=== PATIENT | male | born 1950 | race Caucasian/White ===

== ENCOUNTER → 2023-09-10 10:35 | Outpatient (REF) | payer OTHER, SELFPAY | LOC: HWRAD 10:35 | PROVIDERS: ATTENDING PHYSICIAN Physician Assistant Medical | DX: R63.4 Abnormal weight loss (principal) | CPT/HCPCS: 71260; 74177; Q9967 ==

== ENCOUNTER → 2023-09-26 14:38 | Outpatient (REF) | payer OTHER, SELFPAY | LOC: HWRAD 14:38 | PROVIDERS: ATTENDING PHYSICIAN Surgery Vascular Surgery; FAMILY PHYSICIAN Physician Assistant Medical | DX: I71.40 Abdominal aortic aneurysm, without rupture, unspecified (principal) | CPT/HCPCS: 74174; Q9967 ==

== ENCOUNTER → 2023-09-29 11:18 | Outpatient (REF) | payer OTHER, SELFPAY | LOC: DHCBC/DCA 11:18 | PROVIDERS: ATTENDING PHYSICIAN Nuclear Medicine Nuclear Cardiology; FAMILY PHYSICIAN Physician Assistant Medical | DX: I47.10 Supraventricular tachycardia, unspecified (principal) | CPT/HCPCS: 78452; 93017; A9500; J2785 ==

== ENCOUNTER 2023-10-09 06:24 | Inpatient (IN) | payer MEDICARE, SELFPAY ==
[2023-10-06 10:26] VITALS: BMI 21.6
[2023-10-06 11:13] LABS: % Basophils 0.6 % (0-2); % Eosinophils 2.7 % (0-6); % Immature Granulocytes 0.4 % (0-0.5); % Lymphocytes 22.1 % (20.5-51.1); % Monocytes 9.8 % (1.7-9.3); % Neutrophils 64.4 % (42.2-75.2); Absolute Eosinophils 0.2 10^3/uL (0-0.7); Absolute Lymphocytes 1.6 10^3/uL (1.2-3.4); Absolute Monocytes 0.7 10^3/uL (0.1-0.6); Absolute Neutrophils 4.6 10^3/uL (1.4-6.5); Hematocrit 36.7 % (39.0-52.0); Mean Corp Hgb Conc. 32.7 g/dL (33.0-37.0); Mean Corpuscular Hgb 30.8 pg (27.0-31.0); Mean Corpuscular Volume 94.3 fL (80.0-94.0); Mean Platelet Volume 10.8 fL (7.4-10.4); Nucleated Red Blood Cells % 0 % (-); Platelet Count 190 10^3/uL (130-400); Red Blood Cell Count 3.89 10^6/uL (4.70-6.10); Red Cell Dist. Width 15.2 % (11.5-14.5); White Blood Cell Count 7.1 10^3/uL (4.8-10.8)
[2023-10-06 11:16] LABS: INR 1.28; PT 15.8 Sec (11.4-14.6)
[2023-10-06 11:17] LABS: APTT 31.2 Sec (23.4-35.0)
[2023-10-06 13:39] LABS: Blood Urea Nitrogen 9 mg/dl (9-20); Calcium 8.6 mg/dl (8.4-10.2); Carbon Dioxide 26 mmol/L (22-30); Chloride 107 mmol/L (98-107); Estimated Creatinine Clearance 72 ml/min; Glucose 99 mg/dl (70-99); Potassium 3.5 mmol/L (3.5-5.1); Sodium 139 mmol/L (135-145); eGFR > 60.00
[2023-10-09] VITALS (20 sets, daily range): BP systolic 125–163; BP diastolic 71–104; BMI 19.9
[2023-10-09] MEDS: BACTROBAN NASAL 1 GRAM NASAL (06:54)
[2023-10-09] MEDS: PERIDEX 0.12% ORAL RINSE 15 ML PO (06:55)
--- NOTE | 2023-10-09 07:12 | W.SUR.PREOP ---
Pre-Operative Surgical Note
-
I have examined this patient prior to the performance of the scheduled procedure.
The patient's condition is unchanged from the time of the current History and
Physical and the patient is able to undergo the scheduled procedure.
--- NOTE | 2023-10-09 09:56 | W.SUR.POST ---
Surgical Immediate Post Op
Note
Pre Op Diagnosis: AAA
Post Op Diagnosis: AAA
Procedure Performed: EVAR with left internal iliac artery coil embolization
Primary Surgeon: Renan
Secondary Surgeons: GILLIAN Phillips
Anesthesia: General
Estimated Blood Loss: 100cc
Fluids: see anesthesia flow sheet
Drains/Shunts: none
Specimens/Cultures: none
Doppler/Duplex/Angio (Y/N): Y
Complications: none
Operative Findings: no endoleak
[2023-10-09 10:31] LABS: Glucose - Point of Care 127 mg/dl (70-99)
--- NOTE | 2023-10-09 10:37 | OR.RPT ---
Operative Report
Operative Report
PROCEDURE DATE: 10/09/2023
Preoperative diagnosis:
1. 7.1 x 6.8 cm infrarenal abdominal aortic aneurysm.
2. 2.8 cm left common iliac artery aneurysm.
Postoperative diagnosis: Same
Procedure:
1. Endovascular repair of abdominal aortic aneurysm with bifurcated modular endoprosthesis ([place] conformable C3 excluder) with bilateral iliac limb extension (left iliac limb extended into external iliac artery intentionally).
2. Coil embolization of left internal iliac artery.
3. Percutaneous bilateral common femoral artery closure.
4. Supervision and interpretation.
Surgeon: Renan
Complications: None
Anesthesia: General
Indications for procedure:
Large infrarenal abdominal aortic aneurysm. Severely angulated proximal neck. Left common iliac artery aneurysm. Challenging anatomy. Discussed based on anatomy would recommend conformable C3 [place] excluder graft. Discussed coil embolization of
left internal iliac artery with extension into external iliac artery for management of left common iliac artery aneurysm. Risk/benefit/alternatives also discussed. Patient understood all wish to proceed.
Description of procedure:
Patient was identified brought to the operating room placed on the table in supine position. After the adequate administration of anesthesia and perioperative antibiotics he was prepped and draped in the standard surgical fashion. A standard
preoperative timeout was undertaken and everybody was in agreement the plan. Bilateral common femoral artery access was obtained under direct duplex ultrasound guidance and micropuncture kits. 6 [place] sheaths were placed over 0.035 inch wires.
Next, small 1 cm incisions were made around the sheath entry sites bilaterally. Blunt dissection was undertaken with hemostats to facilitate percutaneous suture delivery. Next, using the ProGlide suture system, percutaneous sutures were deployed
at the 10:00 and 2 o'clock position bilaterally in the standard fashion. Suture strands were tagged outside the skin. We exchanged for 11 [place] sheaths bilaterally. The patient was given 5000 units of intravenous heparin.
Next using a flap angled hydrophilic wire and a george's the catheter, I attempted to cannulate the left iliac system from the right-sided sheath. This was in order to try to coil embolize the left hypogastric artery. Due to the angulation at
the aortic bifurcation I had great difficulty passing any catheter. Therefore I then tried from the left-sided sheath (ipsilateral). Was finally able to gain wire access into the internal iliac artery branches. This was done with a floppy angled
hydrophilic wire. Next I exchanged for a glide catheter is at the only catheter I could get into the internal iliac artery from that angle. Through this I placed three 8 mm Cook Smiley coils. Was able to successfully coil embolized the internal
iliac artery having attempted to maintain my coils in the proximal internal iliac artery to maintain distal branches, but one of the coils migrated into the bifurcation point slightly. Regardless the coil embolization was successfully undertaken.
Next using a KMP catheter, I guided wires into the supraceliac aorta from bilateral access sites. On the left side I exchanged out for a pigtail catheter which was positioned in the juxtarenal aorta. The right side I exchanged for a CITTIOerquist
wire. I now performed power injection aortography. I was able to confirm the wire lay relative to the aortic aneurysm/tortuosity in the proximal neck. And thereby determined that I would bring the ipsilateral graft device up to the right sided
sheath access. Next I exchanged my right-sided 11 [place] sheath for a [place] dry seal 18 [place] sheath which was advanced into the aorta under fluoroscopy.
I then brought the main body device into place. It was oriented under fluoroscopy in the field before loading it over the wire and inserting it through the right-sided sheath. I had oriented such that the contralateral gate would be positioned
anatomic/slightly anteriorly. (This was based on the wire lay on fluoroscopy). The main body was a [place] conformable C3 Excluder endoprosthesis [id number] (32 mm proximal diameter, 14 mm ipsilateral limb diameter, 14 cm length). Once this was
advanced to the level of the juxtarenal aorta, power injection aortography was obtained via the left-sided pigtail catheter. This was done in the appropriate obliquity based on the CT scan imaging prior. The renal artery origins were carefully and
accurately identified. These were marked on the screen. Next, the right sided dry seal sheath was withdrawn to the level of the contralateral gate. I confirmed positioning of the contralateral gate and then began deployment of the stent graft
just at or above the height of the most inferior aspect of the right renal artery. I intentionally placed it slightly high to allow the left side of the graft to flop outward to seal immediately at the left side just inferior to the left renal
artery. This nicely deployed. I initially felt that the graft however was slightly high in the right renal artery. I obtained angiographic imaging which was slightly challenging as the pigtail was slightly crimped by the graft and therefore was
not filling well. However it did look like the graft was slightly high. Therefore, I first elected to cannulate the contralateral gate. I did this by exchanging my pigtail catheter out for a KMP catheter over a floppy hydrophilic wire. I then
was able to cannulate the contralateral gate successfully. I then exchanged for a pigtail catheter back through the gate into the main body of the graft and then above the graft. I confirmed that the pigtail catheter spun well through the main
body of the graft confirming that I was in the true lumen of the limb. Next I performed power injection aortography again and identified the renal arteries again. The graft was cramping right onto the right renal artery origin. While there was
filling of the right renal artery, I felt it was slightly high still. Therefore I then reconstrained using the C3 constraint mechanism. I then gently pulled it down minimally and in addition created some angulation using the conform ability
component. At this point I was satisfied and then unconstrained it again to allow the edges of the stent graft to seal up against the proximal neck as well as I could get it to seal. Now, I was very satisfied.
I then exchanged my pigtail out over a Lunderquist wire. I did not need to perform retrograde pelvic angiogram because I had already coil embolized the internal iliac artery and was going to just extend my iliac contralateral limb beyond there. I
exchanged for a 12 [place] dry seal sheath. I therefore then used a 14 cm length, 12 mm diameter contralateral limb ([id number])that was advanced, and the dry seal sheath was withdrawn. I then deployed the stent graft. It was still short of
the iliac bifurcation and therefore had to extend with a second piece which was also 12 mm diameter, 10 cm length ([id number]) which I was able to seal nicely in the external iliac artery.
Next, I then completed full deployment of the main body (releasing constraint) and completing ipsilateral limb deployment. I then walked off the delivery system. Retrograde pelvic angiogram was performed and appropriate obliquity and iliac
bifurcation marked on the screen on the right side. I then used a 23 mm diameter, 10 cm iliac limb ([id number]) to extend and seal in the ectatic right common iliac artery. This was deployed just short of my ana of the iliac bifurcation nicely.
Next a molding balloon was used to molded the proximal and distal seal zones as well as the overlap sites. Power injection completion aortography was now performed that demonstrated excellent positioning of the graft. No evidence of any endoleak
(even no evidence of type II was noted) was noted. Right internal iliac artery filled nicely. Both renal arteries filled nicely. Successful coil embolization of left internal iliac artery with no retrograde endoleak from that site. Therefore is
very satisfied with the completion angiogram.
Next I exchanged my pigtail catheter back for a Lunderquist wire. Next, I sequentially removed the sheath while cinching down the percutaneous sutures. This was initially done on the right side and then on the left. Once hemostasis was noted the
wire was then withdrawn, the knot was tightened with a knot pusher. Hemostasis was confirmed. The knot was then locked and the suture strands trimmed. This was done as noted on the right initially and then on the left. Hemostasis was fully
achieved bilateral groins with good femoral pulses bilaterally. The small skin incisions were then closed with 4-0 Monocryl subcuticular stitch and Dermabond was applied. Patient tolerated procedure well. He had palpable PT pulses bilaterally
upon completion.
[2023-10-09 10:52] LABS: Hematocrit 31.4 % (39.0-52.0); Hemoglobin 10.8 g/dL (13.0-18.0); Mean Corp Hgb Conc. 34.4 g/dL (33.0-37.0); Mean Corpuscular Hgb 31.9 pg (27.0-31.0); Mean Corpuscular Volume 92.6 fL (80.0-94.0); Red Blood Cell Count 3.39 10^6/uL (4.70-6.10); White Blood Cell Count 6.1 10^3/uL (4.8-10.8)
[2023-10-09 11:01] LABS: INR 1.35; PT 16.7 Sec (11.4-14.6)
[2023-10-09 11:02] LABS: APTT 32.2 Sec (23.4-35.0)
[2023-10-09 11:05] LABS: Blood Urea Nitrogen 6 mg/dl (9-20); Carbon Dioxide 24 mmol/L (22-30); Chloride 112 mmol/L (98-107); Estimated Creatinine Clearance 94 ml/min; Glucose 130 mg/dl (70-99); Potassium 3.6 mmol/L (3.5-5.1); Sodium 139 mmol/L (135-145); eGFR > 60.00
--- NOTE | 2023-10-09 11:10 | CON.INTV ---
Consultation
Consultation Request
Date/Time Consultation Requested: 10/09/2023-11:15 AM
Date/Time Consultation Performed: 10/09/2023-12 noon
Requesting Provider: Vascular surgery
Performing Provider: Dr. Strickland
Reason for Consultation: Postoperative critical care management
Medical History
-
Chief Complaint: AAA
History of Present Illness:
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
postoperative critical care management 10/09/2023.The patient is seen postoperatively in the surgical intensive care unit. He denies any shortness of breath, chest pain, chest congestion, productive cough, abdominal pain, leg swelling or weakness.
Past Medical History
Past Medical History: None (Hypertension. Hyperlipidemia. 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 Former cigarette smoker. Daily marijuana smoker. AAA.)
Social History
Tobacco: Former Smoker (35-dono-tqkd quit 12 months ago)
Living: With Family
Occupational Exposures: No known asbestos exposure
Environmental Exposures: No known tuberculosis exposure
Family History
Family History: Other (Hypertension and maternal grandmother with aneurysm)
Allergies / Home Medications
Allergies
Allergy/AdvReac Type Severity Reaction Status Date / Time
No Known Allergies Allergy Unverified 10/01/23 15:10
Home Medications
Medication Instructions Recorded Confirmed Last Taken Type
atorvastatin 80 mg tablet 80 mg PO QPM #30 tabs 11/12/21 10/09/23 10/08/23 19:00 Rx
amlodipine 5 mg tablet 5 mg PO DAILY 09/20/22 10/09/23 10/07/23 07:00 History
apixaban 5 mg tablet (Eliquis) 5 mg PO BID 09/20/22 10/09/23 10/07/23 19:00 History
brimonidine 0.2 % eye drops 1 drp ophthalmic (eye) BID 10/01/23 10/09/23 10/08/23 22:00 History
latanoprost 0.005 % eye drops 1 drp ophthalmic (eye) QPM 10/01/23 10/09/23 10/08/23 22:00 History
vitamin D3 25 mcg (1,000 unit)-vit 1 tab PO DAILY 10/01/23 10/09/23 10/08/23 11:00 History
K2 90 mcg disintegrating tablet
Review of Systems
-
Unable to Obtain full review of systems at this time due to: Other (Per HPI)
Vitals / Labs / Diagnostic Testing
Vital Signs
Temp Pulse Resp BP Pulse Ox
97 F 57 12 152/75 100
10/09/23 10:18 10/09/23 11:00 10/09/23 11:00 10/09/23 11:00 10/09/23 11:00
Lab Data
10/09/23 10:40
10/09/23 10:40
Laboratory Results
10/09/23
10:40
PT 16.7 H
INR 1.35
APTT 32.2
Microbiology
10/06/23 10:36 Nose MRSA Screen - Final
No Methicillin Resistant Staphylococcus aureus isolated.
Diagnostic Testing:
Physical Exam
-
Exam:
Well-nourished and well-developed in no apparent distress
HEENT-atraumatic, normocephalic
Neck-supple, no JVD, no bruit
Heart-regular rate and rhythm-no murmurs, rubs or gallops
Chest-clear to auscultation, no wheezes, crackles
Back-no tenderness
Abdomen-soft, nontender, nondistended, no hepatosplenomegaly
Extremities-no cyanosis, clubbing, edema and good peripheral pulses
Integument-intact, no rashes, lesions or ecchymosis
Neurology-alert and oriented, nonfocal motor and sensory exam
Assessment
-
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
postoperative critical care management 10/09/2023.
Assessment
Infrarenal AAA-7.1 cm and 2.8 cm left common iliac artery aneurysm
Status post EVAR with bifurcated modular endoprosthesis with bilateral iliac limb extensions, coil embolization of left internal iliac artery-Dr. Urrutia-10/09/2023
Khekqi-uzkxxdnneo-qubcbvadkz 10.8
Mild hyperglycemia
Conditions present prior to admission:
Hypertension.
Hyperlipidemia.
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
COPD-noted on CT chest
Former cigarette smoker
Daily marijuana smoker-and Gummies.
AAA.
Plan
Postoperative surgical intensive care unit monitoring
Supplemental oxygen as needed
Incentive spirometry
Aspiration precautions
Neuro and vascular checks per protocol
Vascular surgery following-correspondence and operative notes reviewed
Monitor hemoglobin
Transfuse as needed
Monitor blood sugar
Insulin supplementation as needed
DVT prophylaxis
Early nutrition
Early mobilization
Ongoing smoking and marijuana cessation counseling
Recommend outpatient pulmonary follow-up with PFTs, ongoing smoking cessation counseling and yearly low-dose lung cancer screening CT
Critical care statement: A total of 50 minutes of critical care time was provided for this patient today. This includes management of unstable vital signs, evaluation of the patient at bedside, reviewing the patient's pertinent medical records
including radiographs, microbiology, laboratory evaluations, and discussion with primary team, consultants, pharmacy, nutrition, physical therapy, case management, charge nurse, critical care nursing, and respiratory therapy.
Diagnostic data:
Chest x-ray 11/07/2021-NAD, osteopenia
CT chest abdomen and pelvis 09/10/2023-large fusiform aortic aneurysm measuring 6.4 cm, mild centrilobular emphysema
Brain MRI-small scattered acute and subacute nonhemorrhagic infarcts in the bilateral cerebral hemispheres greatest in the left frontoparietal region near the vertex
Echocardiogram/-EF 60-65%, aortic sclerosis without stenosis
Nuclear stress test 09/29/2023-EF 65%, fixed defect basilar and pleural septal area, moderate risk study
Data Reviewed
-
EKG: Report reviewed by me
Radiology: Report reviewed by me
CT Scan: Report reviewed by me
Medical Tests (Nuc Med, Echo etc): Report reviewed by me
Labs: Labs reviewed by me
Old Records: Reviewed
Critical Care Time (in minutes): 50
[2023-10-09 11:13] LABS: Platelet Count 143 10^3/uL (130-400)
[2023-10-09 11:14] LABS: Mean Platelet Volume 10.6 fL (7.4-10.4)
[2023-10-09] MEDS: NSS 1000 IV ×2 (11:19→23:32)
--- NOTE | 2023-10-09 11:46 | PTCARENOTE ---
Addendum entered by Herminia Weber RN 10/09/23 14:00:
Secured all connections of Left radial Erlinda which was also zeroed to atmospheric pressure and leveled at phlebostatic axis.
Original Note:
Received patient to room 3371 from PACU. Patient AAOx4, denies complaints of pain but is uncomfortable with cosby, feels as though he has to void. Cosby is draining light yellow urine. Patient has simple mask on, due to come off at 1230.
Saturation 100%. He is in a sinus rhythm in 60s. bilateral PT and DP pulses by doppler. Bilateral groin glue incisions approximated with no hematoma noted. Patient to lay flat for 2 hours, may go to 30degrees at 12:30. Will review orders and
complete admission assessment.
--- NOTE | 2023-10-09 12:30 | PTCARENOTE ---
sat patient up to 30%. Tolerating room air, 96%.
[2023-10-09] MEDS: HEPARIN 5000 UNITS SC ×2 (16:26→23:45)
[2023-10-09] MEDS: LIPITOR 80 MG PO (17:33)
[2023-10-09] MEDS: XALATAN OPHTHALMIC SOLUTION 1 DROP BOTH EYES (17:33)
[2023-10-09] MEDS: ALPHAGAN 0.2% EYE DROPS 1 DROP BOTH EYES (20:35)
[2023-10-10] VITALS (11 sets, daily range): BP systolic 126–155; BP diastolic 64–90; BMI 19.8
--- NOTE | 2023-10-10 00:03 | PTCARENOTE ---
Pt assessment as documented. DP and PT by doppler bilaterally, intermittently palpable PTs. B/L LE warm, pale. L radial a-line zeroed and transduced, correlating with cuff pressure. Pt refused repositioning--educated on importance of offloading and
repositioning. Safe environment maintained, call luu within reach.
--- NOTE | 2023-10-10 04:48 | PTCARENOTE ---
Pt assessment unchanged. Refused to reposition, pt educated.
[2023-10-10 04:56] LABS: Hematocrit 31.6 % (39.0-52.0); Hemoglobin 10.7 g/dL (13.0-18.0); Mean Corp Hgb Conc. 33.9 g/dL (33.0-37.0); Mean Corpuscular Hgb 31.4 pg (27.0-31.0); Mean Corpuscular Volume 92.7 fL (80.0-94.0); Mean Platelet Volume 10.8 fL (7.4-10.4); Platelet Count 159 10^3/uL (130-400); Red Blood Cell Count 3.41 10^6/uL (4.70-6.10); White Blood Cell Count 11.9 10^3/uL (4.8-10.8)
[2023-10-10 05:11] LABS: INR 1.33; PT 16.5 Sec (11.4-14.6)
[2023-10-10 05:12] LABS: APTT 33.1 Sec (23.4-35.0)
[2023-10-10 05:20] LABS: Blood Urea Nitrogen 9 mg/dl (9-20); Calcium 8.5 mg/dl (8.4-10.2); Carbon Dioxide 22 mmol/L (22-30); Chloride 111 mmol/L (98-107); Estimated Creatinine Clearance 94 ml/min; Glucose 127 mg/dl (70-99); Potassium 3.7 mmol/L (3.5-5.1); Sodium 138 mmol/L (135-145); eGFR > 60.00
[2023-10-10] MEDS: NORVASC 5 MG PO (07:42)
[2023-10-10] MEDS: ALPHAGAN 0.2% EYE DROPS 1 DROP BOTH EYES (07:43)
[2023-10-10] MEDS: VITAMIN D3 (cholecalciferol) 25 MCG PO (07:43)
[2023-10-10] MEDS: HEPARIN 5000 UNITS SC (07:43)
--- NOTE | 2023-10-10 07:44 | W.PN.INTV ---
Today's Communication / Plan
Recommendations
Begin to deline
Increase activity
Discontinue Murguia catheter
Outpatient pulmonary follow-up
Transfer out of ICU-spring tester will sign off-call with questions
Assessment
-
73-year-old male with multiple medical problems noted to have 7 cm infrarenal abdominal aortic aneurysm 2.8 cm left common iliac artery aneurysm and underwent EVAR and coil embolization of left internal iliac artery-spring tester consulted for
postoperative critical care management 10/09/2023.
Assessment
Infrarenal AAA-7.1 cm and 2.8 cm left common iliac artery aneurysm
Status post EVAR with bifurcated modular endoprosthesis with bilateral iliac limb extensions, coil embolization of left internal iliac artery-Dr. Urrutia-10/09/2023
Kewkap-tappeciahx-cycltjcqea 10.8
Mild hyperglycemia
Conditions present prior to admission:
Hypertension.
Hyperlipidemia.
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
COPD-noted on CT chest
Former cigarette smoker
Daily marijuana smoker-and Gummies.
AAA.
Plan
Hemodynamically and neurovascularly intact
Wean supplemental oxygen
Incentive spirometry encourage
Aspiration precautions
Monitor hemoglobin
Transfuse if needed
Monitor blood sugars
Insulin supplementation if needed
Neuro and vascular checks per protocol also continue
Vascular surgery closely
DVT prophylaxis recommended
Nutrition
Increase activity/physical therapy
Patient can be transferred out of ICU-call pulmonary if respiratory issues arise
Recommend outpatient pulmonary follow-up with PFTs, ongoing smoking cessation counseling and yearly low-dose lung cancer screening CT
Reviewed the patient's pertinent medical records including radiographs, microbiology, laboratory evaluations, and discussion with primary team, consultants, pharmacy, nutrition, physical therapy, case management, charge nurse, critical care
nursing, and respiratory therapy.
Diagnostic data:
Chest x-ray 11/07/2021-NAD, osteopenia
CT chest abdomen and pelvis 09/10/2023-large fusiform aortic aneurysm measuring 6.4 cm, mild centrilobular emphysema
Brain MRI/-small scattered acute and subacute nonhemorrhagic infarcts in the bilateral cerebral hemispheres greatest in the left frontoparietal region near the vertex
Echocardiogram-EF 60-65%, aortic sclerosis without stenosis
Nuclear stress test 09/29/2023-EF 65%, fixed defect basilar and pleural septal area, moderate risk study
Subjective Dataa
Subjective Data
Date of Service:
Date of Service: October 10, 2023
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
Subjective:
Feels well, no neurologic symptoms, no shortness of breath at rest, chest pain, chest tightness, productive cough, congestion, abdominal pain, or weakness
Review of Systems
General: Other (Per HPI)
Objective Data
Data Reviewed
Vital Signs / I&O / Oxygen:
Vital Signs
Temp Pulse Resp BP Pulse Ox
98.1 F 54 14 135/71 99
10/10/23 07:41 10/09/23 21:45 10/09/23 21:45 10/09/23 21:00 10/09/23 21:48
Intake and Output
10/09/23 10/10/23 10/11/23
06:59 06:59 06:59
Intake Total 2390 / 2390
Output Total 3205 / 3205
Balance -815 / -815
SaO2 99
Nasal Cannula flow liters per 10
minute
Physical Exam
General: Respiratory Distress (n) and Comfortable
HEENT: Normocephalic, Anicteric and Moist Mucous Membranes
Cardiovascular: Regular Rhythm
Respiratory: Wheeze (n), Crackles (n), Rhonchi (n), Non-Labored Respirations and Accessory Resp Muscle Use (n)
GI: Soft, Non Distended and Non Tender
Neurology: Awake, Alert and No Motor Deficits
Skin: Warm, Good Color, Cyanosis (n) and Jaundice (n)
Labs/Micro/Reports
Lab Data
10/10/23 04:41
10/10/23 04:41
Laboratory Results
10/09/23 10/10/23
10:40 04:41
PT 16.7 H 16.5 H
INR 1.35 1.33
APTT 32.2 33.1
Microbiology
10/06/23 10:36 Nose MRSA Screen - Final
No Methicillin Resistant Staphylococcus aureus isolated.
--- NOTE | 2023-10-10 09:04 | W.PN.VS ---
Today's Communication / Plan
-
Seen and assessed with Dr. Dr. Murguia
Assessment/Plan
-
POD 1 EVAR
Plan:
-DC A-line
-DC Shantal
-Out of bed/ambulate
-Diet
-DC fluids
-Restart Eliquis
Subjective Data
-
Date of Service: October 10, 2023
Patient seen at bedside this a.m. offers no complaints at this time. No events overnight. No abdominal pain
Objective Data
-
Vital Signs
Temp Pulse Resp BP Pulse Ox
98.1 F 70 14 155/72 96
10/10/23 07:41 10/10/23 07:42 10/09/23 21:45 10/10/23 07:42 10/10/23 08:49
Intake and Output
10/09/23 10/10/23 10/11/23
06:59 06:59 06:59
Intake Total 2390 / 2470 160 / 160
Output Total 3205 / 3555 350 / 350
Balance -815 / -1085 -190 / -190
Intake:
Oral fluids 690 / 690
IV fluids (Total) 1700 / 1780 160 / 160
NSS 100 / 100
Nss 1,000 ml @ 80 mls/hr IV . 1600 / 1680 160 / 160
[id number] Rx#:[id number]
Output:
Urine, Murguia 3205 / 3555 350 / 350
Lab Results
10/10/23 04:41
10/10/23 04:41
Calcium 8.5 mg/dl (8.4-10.2) 10/10/23 04:41
Physical Exam
-
AAOx3
No tachypnea on room air
No tachycardia
Abdomen soft, nontender
Bilateral groin sites clean, dry, intact, soft, no discharge
No hematoma
Bilateral feet warm
Palpable pulses
--- NOTE | 2023-10-10 09:38 | PTCARENOTE ---
0715 Vital Signs prior to 0700 can not be verified by this nurse
--- NOTE | 2023-10-10 09:43 | PTCARENOTE ---
Pt received in bed AAOx3, pleasant and cooperative, follows commands, SB-NSR, no edema, pulses by Doppler, LE pale with some PVD coloration, room air, diminished BS in bases, coarse T/O, occasional moist cough nonproductive, abdomen soft NT,
indwelling Murguia draining clear yellow urine, catheter removed as per Vascular orders, PT needs to void by 1515, [place] removed, pressure applied and dressing applied as per Vascular, IV fluids D/C, B/L groin incisions, closed with surgical adhesive,
soft palpable, no edema, no hematoma, no bleeding noted, assisted PT OOB to chair, steady gait
--- NOTE | 2023-10-10 11:34 | CM ---
CM following re: discharge planning.
Discussed in Rounds, reviewed pt's chart, met with pt.
Pt is a 73 year old male, admitted with primary dx of POD 1 s/p CHANDLERAR.
Pt reports he lives with spouse in just built in in law suite attached to daughter's house, one story, no steps. 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 No DME, VN or SNF history. Pt stated he is aware he will be discharged
home today. IMM reviewed, placed in chart, pt has a copy.
PCP: Rony Verdugo.
Pharmacy: [facility]
D/C plan: home with no needs. Pt stated either his spouse or daughter will transport home.
--- NOTE | 2023-10-10 11:51 | PTCARENOTE ---
PT ambulated to bathroom with PCT, PT voided after catheter removal without issue, ambulated with steady gait, pulses +Doppler B/L DP pulses, B/L groin incisions, YUSRA, surgical glue in place, sites remain soft and palpable, with no signs of hematoma
noted, PT for discharge
--- NOTE | 2023-10-10 11:57 | W.DS.TRANS ---
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
-
Discharge Instructions:
Sleep Apnea Risk Intermediate
Discharge Diagnosis/Procedures EVAR
Diet As tolerated
Activity No strenuous activity
Driving Restrictions No driving for 2 weeks
Bathing Restrictions OK to Shower
Instructions:
Stand-Alone Forms: DC Instr - Vascular OR
Changes to Home Medications: Yes
Discharge Medications:
DC Medications w/original date entered in [employer]
atorvastatin 80 mg tablet 80 mg PO QPM #30 tabs 11/12/21
amlodipine 5 mg tablet 5 mg PO DAILY Blood Pressure 09/20/22
apixaban 5 mg tablet (Eliquis) 5 mg PO BID Blood Clot Prevention/Tx 09/20/22
brimonidine 0.2 % eye drops 1 drp ophthalmic (eye) BID Eye Condition 10/01/23
latanoprost 0.005 % eye drops 1 drp ophthalmic (eye) QPM Eye Condition 10/01/23
vitamin D3 25 mcg (1,000 unit)-vit K2 90 mcg disintegrating tablet 1 tab PO DAILY Supplement 10/01/23
aspirin 81 mg chewable tablet (Children's Aspirin) 81 mg PO DAILY #90 tabs 10/10/23
Home Medication Changes
Added ASA 81mg
Pending Results: No
--- NOTE | 2023-10-10 13:00 | PTCARENOTE ---
INT's removed, pressure dressing applied, telemetry removed, PT assisted with dressing, reviewed all discharge instructions and PT read them back, denies any questions, PT with all belongings in room left to awaiting car by wheelchair
--- NOTE | 2023-10-10 13:12 | W.DCSUMMARY ---
Discharge Summary
Discharge Data
Date of Admission: 10/09/23
Date of Discharge: 10/10/23
-
Pending Results: No
Hospital Course
Attending: Renan
Consultants: Pulmonary medicine
Allergies: NKDA
Procedure with date: 10/09/2019: Endovascular pair of abdominal aortic aneurysm with bifurcated modular endoprosthesis ([place]) with bilateral iliac limb extension, coil embolization of left internal iliac artery, percutaneous bilateral femoral artery
closure
History of present illness: The patient is an 73-year-old male with multiple medical conditions including: Hypertension, hyperlipidemia, cerebrovascular accident, former smoker, daily marijuana smoker, abdominal aortic aneurysm. Patient presented
on 10/09/2023 for scheduled procedure with Dr. Urrutia. Patient presented at baseline health with no reports of recent illness or trauma.
Hospital Course: Briefly, the patient underwent scheduled EVAR without complications, and recovered in PACU. Following recovery phase one and two patient was transferred to intensive care unit per protocol for continued hemodynamic monitoring.
Aviation Program Manager consulted to aid in medical management from a critical care perspective. POD #1 (10/10/2023) Patient neurologically intact, face symmetrical, and tolerating PO diet. Surgical groin sites clean, dry, and intact and soft. No evidence of
hematoma. Arterial line and IV fluids discontinued. Patient able to ambulate without difficulty or incident. Patient stable for discharge to home.
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 All instructions were given to the patient in both written and verbal form and the patient expressed understanding.
Discharge Plan
-
Patient Disposition: Home (Routine Discharge)
Discharge Diagnosis/Procedures: EVAR
Condition: Good
Diet: As tolerated
Activity: No strenuous activity
Driving Restrictions: No driving for 2 weeks
Bathing Restrictions: OK to Shower
Stand Alone Forms: DC Instr - Vascular OR
Referrals:
Ira Goncalves PA-C [Specified Professional Personl] - 10/23/23 9:30 am (Vascular follow-up)
Rony Verdugo PA-C [Family Provider] -
Clarence Strickland MD [Active] -
(Dr. Strickland or SUPERVISOR OF OFFICIALS
Ongoing smoking cessation counseling, PFT, and yearly low-dose lung cancer screening CT)
Prescriptions:
New
aspirin [Children's Aspirin] 81 mg Tablet,Chewable
81 mg PO DAILY Qty: 90 0RF
Continued
atorvastatin 80 MG tablet
80 mg PO QPM Qty: 30 0RF
amlodipine 5 mg Tablet
5 mg PO DAILY
Eliquis 5 mg Tablet
5 mg PO BID
latanoprost 0.005 % Drops
1 drp OPHTHALMIC (EYE) QPM
brimonidine 0.2 % Drops
1 drp OPHTHALMIC (EYE) BID
vitamin D3-vitamin K2 25 mcg (1,000 unit)-90 mcg Tablet,Disintegrating
1 tab PO DAILY
Discharge Orders:
Discharge Patient (As Directed); Ordered 10/10/23
Ordered By: Angie Colmenares
== END 2023-10-10 13:49 | disposition home or self-care (01) | DRG 269 ==
LOC: ICU 06:24
PROVIDERS: Nurse Practitioner Acute Care; ADMITTING PHYSICIAN Surgery Vascular Surgery; CONSULT PHYSICIAN Internal Medicine Critical Care Medicine; FAMILY PHYSICIAN Physician Assistant Medical
PROC: 04V03DZ Restriction of Abdominal Aorta with Intraluminal Device, Percutaneous Approach (ICD-10-PCS; 2023-10-09)
PROC: 04LF3DZ Occlusion of Left Internal Iliac Artery with Intraluminal Device, Percutaneous Approach (ICD-10-PCS; 2023-10-09)
DX: I71.43 Infrarenal abdominal aortic aneurysm, without rupture (principal); I72.3 Aneurysm of iliac artery; E78.5 Hyperlipidemia, unspecified; I10 Essential (primary) hypertension; D64.9 Anemia, unspecified; R73.9 Hyperglycemia, unspecified; J44.9 Chronic obstructive pulmonary disease, unspecified; Z87.891 Personal history of nicotine dependence; Z86.73 Personal history of transient ischemic attack (TIA), and cerebral infarction without residual deficits
CPT/HCPCS: 34705; 34709; 36415; 37242; 76937; 80048; 82962; 85025; 85027; 85610; 85730; 86850; 86900; 86901; 87070; C1760; C1769; C1892; C1894; C2628; Q9967

== ENCOUNTER → 2023-10-23 10:14 | Outpatient (REF) | payer MEDICARE, SELFPAY ==
[2023-10-23 12:12] LABS: Blood Urea Nitrogen 16 mg/dl (9-20); Calcium 9.8 mg/dl (8.4-10.2); Carbon Dioxide 25 mmol/L (22-30); Chloride 104 mmol/L (98-107); Glucose 103 mg/dl (70-99); Potassium 4.6 mmol/L (3.5-5.1); Sodium 141 mmol/L (135-145); eGFR > 60.00
== END ==
LOC: RAD 10:14
PROVIDERS: ATTENDING PHYSICIAN Physician Assistant
DX: I71.40 Abdominal aortic aneurysm, without rupture, unspecified (principal)
CPT/HCPCS: 36415; 80048; 93926

== ENCOUNTER → 2023-11-13 11:18 | Outpatient (REF) | payer MEDICARE, SELFPAY | LOC: HWRAD 11:18 | PROVIDERS: ATTENDING PHYSICIAN Physician Assistant; FAMILY PHYSICIAN Physician Assistant Medical | DX: I71.40 Abdominal aortic aneurysm, without rupture, unspecified (principal) | CPT/HCPCS: 71275; 74174; Q9967 ==

== ENCOUNTER → 2024-05-25 09:30 | Outpatient (REF) | payer MEDICARE, SELFPAY | LOC: DHVS 09:30 | PROVIDERS: ATTENDING PHYSICIAN Surgery Vascular Surgery; FAMILY PHYSICIAN Family Medicine | DX: I71.40 Abdominal aortic aneurysm, without rupture, unspecified (principal) | CPT/HCPCS: 76770 ==

== ENCOUNTER → 2024-12-07 11:47 | Outpatient (REF) | payer MEDICARE, SELFPAY | LOC: RAD 11:47 | PROVIDERS: ATTENDING PHYSICIAN Surgery Vascular Surgery; FAMILY PHYSICIAN Physician Assistant Medical | DX: I71.40 Abdominal aortic aneurysm, without rupture, unspecified (principal) | CPT/HCPCS: 71275; 74174; 76770; Q9967 ==

== ENCOUNTER → 2025-04-27 10:12 | Outpatient (REF) | payer MEDICARE, SELFPAY | LOC: MRI 3T 10:12 | PROVIDERS: ATTENDING PHYSICIAN Physician Assistant Medical; FAMILY PHYSICIAN Physician Assistant Medical | DX: R93.3 Abnormal findings on diagnostic imaging of other parts of digestive tract (principal) | CPT/HCPCS: 74183; A9575 ==